=== PATIENT | female | born 2000 | race African-American/Black ===

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

== ENCOUNTER 2018-08-31 11:33 | Emergency (ER) | payer SELFPAY ==
[~2018-08-31] VITALS: Ht 157.5 cm; Wt 63.5 kg
[~2018-08-31 11:33] MED LIST changes: +IBUP-1060 PO; +METH-37 PO; +NAPR-695 PO; -NAPR375T3 PO; +TRAM-48 PO
[2018-08-31 11:55] VITALS: BP 126/78
[2018-08-31] MEDS ORDERED: OFLO5DRO EACHEYE (11:58)
--- NOTE | 2018-08-31 11:59 | PHYS DOC ---
Past Medical History Past Medical History: No Pertinent History Past Surgical History: Other Additional Past Surgical Histo: L wrist surgery as child Alcohol Use: None Drug Use: Marijuana Adult General Chief Complaint Chief Complaint: EYE PROBLEMS HPI HPI Patient is a 18 year old female who presents with erythema and drainage to right eye x 4 days. She is now starting to have symptoms in the left eye. She states it was matted shut this morning. She denies changes in visual acuity. Review of Systems Review of Systems Constitutional: Denies fever or chills [] Eyes: See history of present illness HENT: Denies nasal congestion or sore throat [] Respiratory: Denies cough or shortness of breath [] Cardiovascular: No additional information not addressed in HPI [] Neurologic: Denies headache, focal weakness or sensory changes [] Endocrine: Denies polyuria or polydipsia [] All other systems were reviewed and found to be within normal limits, except as documented in this note. Allergies Allergies Allergies Coded Allergies Type Severity Reaction Last Updated Verified No Known Drug Allergies 10/06/16 No Physical Exam Physical Exam Constitutional: Well developed, well nourished, no acute distress, non-toxic appearance. [] HENT: Normocephalic, atraumatic, bilateral external ears normal, oropharynx moist, no oral exudates, nose normal. [] Eyes: PERRLA, EOMI, conjunctiva erythematous with green matter noted Neck: Normal range of motion, no tenderness, supple, no stridor. [] Cardiovascular:Heart rate regular rhythm, no murmur [] Lungs & Thorax: Bilateral breath sounds clear to auscultation [] Neurologic: Alert and oriented X 3, normal motor function, normal sensory function, no focal deficits noted. [] Psychologic: Affect normal, judgement normal, mood normal. [] Current Patient Data Vital Signs Vital Signs Date Time Temp Pulse Resp B/P (MAP) Pulse Ox O2 Delivery O2 Flow Rate FiO2 08/31/18 11:55 98.8 69 16 126/78 (94) 96 Room Air 98.8 EKG EKG [] Radiology/Procedures Radiology/Procedures [] Course & Med Decision Making Course & Med Decision Making Pertinent Labs and Imaging studies reviewed. (See chart for details) [] Staff Physician Addendum: I was working in the ER during the course of this patient's visit. I was available for consultation as needed, but I was not directly involved in the care of this patient. Dragon Disclaimer Dragon Disclaimer This electronic medical record was generated, in whole or in part, using a voice recognition dictation system. Departure Departure Impression: Primary Impression: Bacterial conjunctivitis of both eyes Disposition: 01 HOME, SELF-CARE Condition: STABLE Referrals: UNKNOWN PCP NAME (PCP) Patient Instructions: Bacterial Conjunctivitis Additional Instructions: Use the antibiotic eyedrops as directed. Follow up with your primary care provider or mineral industry teacher in 3 days if not improving or return to the emergency department if worsening. Scripts Ofloxacin (OCUFLOX) 5 Ml Drops 1-2 DROP EACHEYE BID for conjunctivitis, #1 BOTTLE Prov: ROXY FARFAN APRN 08/31/18 ROXY FARFAN APRN Aug 31, 2018 11:59 SOHAN CHAVEZ MD Sep 01, 2018 12:34
== END 2018-08-31 12:15 | disposition home or self-care (01) ==
LOC: ER 11:33
DX: H10.89 Other conjunctivitis (principal)
CPT/HCPCS: 99283

== ENCOUNTER 2021-06-11 07:07 | Emergency (ER) | payer SELFPAY ==
[~2021-06-11] VITALS: Ht 160 cm; Wt 66.8 kg
[~2021-06-11 07:07] MED LIST changes: +OFLO5DRO EACHEYE
[2021-06-11] MEDS ORDERED: FLUC150T PO (07:47)
--- NOTE | 2021-06-11 07:50 | PHYS DOC ---
Past Medical History Past Medical History: No Pertinent History Past Surgical History: Other Additional Past Surgical Histo: L wrist surgery as child Smoking Status: Never Smoker Alcohol Use: Occasionally Drug Use: Marijuana General Adult EDM: Chief Complaint: VAGINAL PROBLEM HPI: HPI: Patient is a 21 year old female who presents with 1 day of vaginal itching. Does have a history of a yeast infection once in the past. Feels similar to that. Denies any discharge. Sexually active with women only. 2 partners in the past year. No personal or partner history of STI. States she was recently checked for GC and chlamydia and was negative. No recent antibiotics. No dysuria, urgency, frequency, flank pain, fever, or chills. No abdominal pain. Review of Systems: Review of Systems: Constitutional: Denies fever or chills. [] Eyes: Denies change in visual acuity. [] HENT: Denies nasal congestion or sore throat. [] Respiratory: Denies cough or shortness of breath. [] Cardiovascular: Denies chest pain or edema. [] GI: Denies abdominal pain, nausea, vomiting, bloody stools or diarrhea. [] : Denies dysuria. Reports vaginal itching. [] Musculoskeletal: Denies back pain or joint pain. [] Integument: Denies rash. [] Neurologic: Denies headache, focal weakness or sensory changes. [] Endocrine: Denies polyuria or polydipsia. [] Lymphatic: Denies swollen glands. [] Psychiatric: Denies depression or anxiety. [] Heart Score: C/O Chest Pain: N/A Risk Factors: Risk Factors: DM, Current or recent (<one month) smoker, HTN, HLP, family history of CAD, obesity. Risk Scores: Score 0 - 3: 2.5% MACE over next 6 weeks - Discharge Home Score 4 - 6: 20.3% MACE over next 6 weeks - Admit for Clinical Observation Score 7 - 10: 72.7% MACE over next 6 weeks - Early Invasive Strategies Allergies: Allergies: Allergies Coded Allergies Type Severity Reaction Last Updated Verified No Known Drug Allergies 06/11/21 No Physical Exam: PE: Constitutional: Well developed, well nourished, no acute distress, non-toxic appearance. [] HENT: Normocephalic, atraumatic, bilateral external ears normal, oropharynx moist, no oral exudates, nose normal. [] Eyes: PERRLA, EOMI, conjunctiva normal, no discharge. [] Neck: Normal range of motion, no tenderness, supple, no stridor. [] Cardiovascular:Heart rate regular rhythm, no murmur [] Lungs & Thorax: Bilateral breath sounds clear to auscultation [] Abdomen: Bowel sounds normal, soft, no tenderness, no masses, no pulsatile masses. [] : Normal appearance of exterior genitalia. No significant discharge. No vaginal or cervical lesions. Skin: Warm, dry, no erythema, no rash. [] Back: No tenderness, no CVA tenderness. [] Extremities: No tenderness, no cyanosis, no clubbing, ROM intact, no edema. [] Neurologic: Alert and oriented X 3, normal motor function, normal sensory function, no focal deficits noted. [] Psychologic: Affect normal, judgement normal, mood normal. [] Current Patient Data: Labs: Laboratory Tests Test 06/11/21 07:20 POC Urine HCG, Qualitative Hcg negative (Negative) Vital Signs: Vital Signs Date Time Temp Pulse Resp B/P (MAP) Pulse Ox O2 Delivery O2 Flow Rate FiO2 06/11/21 07:17 98.0 75 16 136/75 (95) 100 Room Air 98.0 EKG: EKG: [] Radiology/Procedures: Radiology/Procedures: [] Course & Med Decision Making: Course & Med Decision Making Pertinent Labs and Imaging studies reviewed. (See chart for details) Patient a 21-year-old female who presents with 1 day of vaginal itching. Feels similar to previous yeast infections. No recent antibiotics. Sexually active only with women. No vaginal discharge, or urinary symptoms. Pelvic exam normal. We will send GC/chlamydia swab, but will not treat empirically as she is low risk. Awaiting wet prep. [id number] Yvette Disclaimer: Yvette Disclaimer: This electronic medical record was generated, in whole or in part, using a voice recognition dictation system. Departure Departure Impression: Primary Impression: Vaginal pruritus Disposition: HOME / SELF CARE / HOMELESS Condition: STABLE Referrals: NO PCP (PCP) Additional Instructions: I have sent a prescription for a one-time pill to treat for a yeast infection to your pharmacy. Gonorrhea and chlamydia testing will take a few days to result. You will be called if your test returns positive. Please follow up with you usual doctor if symptoms persist. If you develop fever/chills, pain with urination, worsening back pain, or other new/concerning symptoms you can return to the emergency department at any time for re-evaluation. Scripts Fluconazole (DIFLUCAN) 150 Mg Tablet 1 TAB PO ONCE, #1 TAB 1 Refill Prov: RAINER VAUGHN MD 06/11/21 RAINER VAUGHN MD Jun 11, 2021 07:50
[2021-06-11] MEDS ORDERED: METR500T PO (08:45)
--- NOTE | 2021-06-11 08:46 | PHYS DOC ---
Past Medical History Past Medical History: No Pertinent History Past Surgical History: Other Additional Past Surgical Histo: L wrist surgery as child Smoking Status: Never Smoker Alcohol Use: Occasionally Drug Use: Marijuana General Adult EDM: Chief Complaint: VAGINAL PROBLEM HPI: HPI: see Dr. Leung' note Review of Systems: Review of Systems: see Dr. Leung' note Heart Score: C/O Chest Pain: No Risk Factors: Risk Factors: DM, Current or recent (<one month) smoker, HTN, HLP, family history of CAD, obesity. Risk Scores: Score 0 - 3: 2.5% MACE over next 6 weeks - Discharge Home Score 4 - 6: 20.3% MACE over next 6 weeks - Admit for Clinical Observation Score 7 - 10: 72.7% MACE over next 6 weeks - Early Invasive Strategies Allergies: Allergies: Allergies Coded Allergies Type Severity Reaction Last Updated Verified No Known Drug Allergies 06/11/21 No Physical Exam: PE: see Dr. Leung' note Current Patient Data: Labs: Laboratory Tests Test 06/11/21 07:20 POC Urine HCG, Qualitative Hcg negative (Negative) Microbiology 06/11/21 Wet Prep - Final, Complete Vital Signs: Vital Signs Date Time Temp Pulse Resp B/P (MAP) Pulse Ox O2 Delivery O2 Flow Rate FiO2 06/11/21 07:17 98.0 75 16 136/75 (95) 100 Room Air 98.0 EKG: EKG: [] Radiology/Procedures: Radiology/Procedures: [] Course & Med Decision Making: Course & Med Decision Making Pertinent Labs and Imaging studies reviewed. (See chart for details) I received signout from Dr. Vaughn regarding patient complains of vaginal itching for 1 day, unremarkable pelvic exam. Patient denies any vaginal discharge, bleeding or urinary symptoms. Wet prep consistent with bacterial vaginosis. Diflucan prescribed as prophylaxis by Dr. Vaughn. Patient formation provided contact number in case your chlamydia or gonorrhea should result positive. Lupe ent reports only female partners, no history of STIs. Will discharge home with strict ED return precautions were given for vaginal bleeding, fever, abdominal pain or dysuria. Encouraged urgent outpatient follow-up with PMD for outpatient follow-up, recommended health department for blood-borne STI testing. Life- threatening processes were considered but are low suspicion at this time, given history, physical exam and ED workup. Pt was educated on all prescription medications and adverse effects. All patient's questions were answered and pt was stable at time of discharge. Life/limb-threatening differential includes but is not limited to, ectopic , septic , sepsis/infection (endometritis, sti/pid, cystitis, pyelonephritis, Malik's gangrene or necrotizing fasciitis, abscess), ovarian torsion, ruptured hemorrhagic ovarian cyst, endometriosis, ureterolithiasis, th rombophlebitis, hemorrhage/DIC, organ prolapse, abdominal aortic aneurysm, mesenteric ischemia, neoplasm, bowel obstruction or surgical abdomen. I have spoken with the patient and/or caregivers. I explained the patient's condition, diagnoses and treatment plan based on the information available to me at this time. I have answered the patient and/or caregiver's questions and add ressed any concerns. The patient and/or caregivers have a good understanding of patient's diagnosis, condition and treatment plan as can be expected at this point. Vital signs have been stable. Patient's condition is stable and appropriate for discharge from the emergency department. Patient will pursue further outpatient evaluation with primary care physician or other designated or consulting physician as outlined in the discharge instructions. The patient and/or caregivers are agreeable to this plan of care and follow-up instructions have been explained in detail. The patient and/or caregivers have received these instructions in written form and have expressed an understanding of the discharge instructions. The patient and/or caregivers are aware that any significant change of condition or worsening of symptoms should prompt immediate return to this or the closest emergency department or call to 911. Yvette Disclaimer: Yvette Disclaimer: This electronic medical record was generated, in whole or in part, using a voice recognition dictation system. Departure Departure Impression: Primary Impression: Vaginal pruritus Additional Impression: Bacterial vaginosis Disposition: HOME / SELF CARE / HOMELESS Condition: STABLE Referrals: NO PCP (PCP) Follow-up with your primary care physician within 1 week OR FOLLOW UP WITH FAMILY MEDICINE: [address] [facility] [address] [place] [address] Patient Instructions: Bacterial Vaginosis Additional Instructions: I have sent a prescription for a one-time pill to treat for a yeast infection to your pharmacy. Gonorrhea and chlamydia testing will take a few days to result. You will be chevy led if your test returns positive. Please follow up with you usual doctor if symptoms persist. If you develop fever/chills, pain with urination, worsening back pain, or other new/concerning symptoms you can return to the emergency department at any time for re-evaluation. Scripts Metronidazole (FLAGYL) 500 Mg Tablet 1 TAB PO BID for 7 Days, #14 TAB Prov: SIMA DASILVA DO 06/11/21 Fluconazole (DIFLUCAN) 150 Mg Tablet 1 TAB PO ONCE, #1 TAB 1 Refill Prov: RAINER VAUGHN MD 06/11/21 SIMA DASILVA DO Jun 11, 2021 08:46
[2021-06-11 08:50] VITALS: BP 144/75
[2021-06-12 18:37] LABS: GC PROBE Negative (Negative)
== END 2021-06-11 08:50 | disposition home or self-care (01) ==
LOC: ER 07:07
DX: L29.8 Other pruritus (principal); N76.0 Acute vaginitis; B96.89 Other specified bacterial agents as the cause of diseases classified elsewhere
CPT/HCPCS: 81025; 87491; 87591; 99284; Q0111; 99283

== ENCOUNTER 2021-12-10 17:40 | Emergency (ER) | payer SELFPAY ==
[~2021-12-10] VITALS: Ht 157.5 cm; Wt 61.8 kg
[~2021-12-10 17:40] MED LIST changes: +FLUC150T PO; +METR500T PO
[2021-12-10 17:55] VITALS: BP 119/68
[2021-12-10] MEDS ORDERED: BENZONATATE 100 MG CAPSULE. PO ONE (18:30)
[2021-12-10] MEDS ORDERED: BENZOCAINE/MENTHOL LOZENGE. PO PRN (18:30)
[2021-12-10] MEDS ORDERED: BENZ-8 PO (18:44)
[2021-12-10] MEDS ORDERED: GUAI400T78 PO (18:44)
--- NOTE | 2021-12-10 18:45 | PHYS DOC ---
Past Medical History Past Medical History: No Pertinent History Past Surgical History: Other Additional Past Surgical Histo: L wrist surgery as child Smoking Status: Never Smoker Alcohol Use: Occasionally Drug Use: Marijuana General Adult EDM: Chief Complaint: FLU SYMPTOM HPI: HPI: Patient is a 21 year old female who presents with 4-day history of fatigue, body aches, nasal congestion, cough, ear pain, headache, nausea, eye itching. Patient reports associated night sweats and alternating feeling of hot and cold while working. When she wakes up, she states that her eyes are crusted shut. Patient was not vaccinated against COVID-19 nor has she received a flu shot this season. Review of Systems: Review of Systems: ROS negative or noncontributory except as mentioned in HPI. Heart Score: C/O Chest Pain: No Current Medications: Current Medications Medications (Trade) Dose Ordered Sig/Kaitlin Start Time Stop Time Status Last Admin Dose Admin Benzonatate (Tessalon Perle) 100 mg 1X ONCE 12/10/21 18:30 12/10/21 18:31 UNV Guaifenesin (Mucinex) 600 mg 1X ONCE 12/10/21 18:30 12/10/21 18:31 UNV Throat Lozenges (Cepacol Sore Throat Lozenge) 1 joaquin PRN Q2HRS PRN 12/10/21 18:30 UNV Allergies: Allergies: Allergies Coded Allergies Type Severity Reaction Last Updated Verified No Known Drug Allergies 06/11/21 No Physical Exam: PE: Constitutional: Well developed, well nourished, no acute distress, non-toxic appearance. HENT: Normocephalic, atraumatic, bilateral external ears normal, bilateral ear canals with significant amount of cerumen and without erythema or discharge, oropharynx moist, no oral exudates, bilateral nares with some mucus noted, no turbinate enlargement bilaterally. Eyes: PERRL, EOMI, conjunctiva normal, watery discharge bilaterally. Neck: Normal range of motion, supple, no stridor. Skin: Warm, dry, no erythema, no rash. Extremities: No cyanosis, no clubbing, ROM intact, no edema. Neurologic: Alert and oriented x4, normal motor function, normal sensory function, steady and symmetrical upright gait, no focal deficits noted. Current Patient Data: Labs: Laboratory Tests Test 12/10/21 18:12 Influenza Type A Antigen Negative (NEGATIVE) Influenza Type B Antigen Negative (NEGATIVE) SARS-CoV-2 Antigen (Rapid) Negative (NEGATIVE) Vital Signs: Vital Signs Date Time Temp Pulse Resp B/P (MAP) Pulse Ox O2 Delivery O2 Flow Rate FiO2 12/10/21 17:55 98.3 84 18 119/68 (85) 96 Room Air 98.3 Course & Med Decision Making: Course & Med Decision Making Pertinent Labs and Imaging studies reviewed. (See chart for details) Yvette Disclaimer: Yvette Disclaimer: This electronic medical record was generated, in whole or in part, using a voice recognition dictation system. Departure Departure Impression: Primary Impression: Acute viral syndrome Disposition: HOME / SELF CARE / HOMELESS Condition: STABLE Referrals: NO PCP (PCP) Patient Instructions: Viral Syndrome Additional Instructions: Follow the following supportive treatment measures: - Cool mist humidifier with plain water at bedside while you sleep - Mucinex (guaifenesin) per box instructions - Tessalon perles (benzonatate) for cough, especially at night before bed - Throat drops with benzocaine/menthol (brand name is Cepacol) - Alternate ibuprofen and acetaminophen every four hours for body aches/fever/headache If antibiotics were prescribed, take them as directed. You have been tested for or diagnosed with COVID-19 infection. It is an infection caused by a new type of coronavirus. COVID-19 will cause cold-like or mild flu symptoms in most. It can cause more severe symptoms like problems breathing in some. There is no treatment for COVID-19. The body will clear the infection over time. Self-care will help to ease discomfort. Steps to Take: - Rest as needed. - Choose healthy foods including fruits and vegetables. Drink water throughout the day. - Get plenty of sleep each night. - If you smoke, try to quit. It may ease breathing. - Avoid alcohol. - Keep Others Healthy - The virus can spread to others. Droplets are released every time you sneeze or cough. The droplets can get into the mouth, nose, or eyes of people near you and lead to infection. To lower the chances of spreading COVID-19 to others: Stay at home until your doctor has said it is safe to leave. If you tested positive this will mean staying isolated until both of the following are true: - At least 10 days have passed since the start of illness. - You are free of fever for at least 72 hours without the use of medicine. During this time: - Avoid public areas, events, or transportation. Do not return to work or school until your doctor has said it is safe to do so. - Call ahead if you need to go to a medical center. Let them know you may have COVID-19. It will help them guide you where to go. They may also ask you to wear a facemask when you come to the office. - If you call for emergency medical services, let them know you may have COVID- 19. While at home: - Try to avoid close contact with others. Stay about 6 feet away. - If possible, spend most of your time in a separate room from others. - Use a face mask if you will be in close contact with others such as sharing a room or vehicle. - Have someone wipe down common surfaces in the home. Use household airplane pilot helper every day on areas like doorknobs, counters, or sinks. - Cough or sneeze into a tissue. Throw the tissue away right after use. If a tissue is not available, cough or sneeze into your elbow. - Wash your hands often. Wash them after sneezing or coughing. Use soap and water and wash or at least 20 seconds. Alcohol based hand silver cleaner can be used if soap and water is not available. - Do not prepare food for others. Avoid sharing personal items like forks, spoons, or toothbrushes. - Avoid close contact with pets while you are sick. There is no evidence of the virus passing to pets. This is a safety step until more is known about this virus. - Isolation can be frustrating. Social interaction can help. Keep in touch with friends and family through phone and tech options. You can still interact with others in your home, just keep a safe distance of about 6 feet. Follow-up: - Your doctors office will check in with you to see if there are any changes in your health. - You may be asked to keep track of symptoms to share with them. They will also let you know when you are clear to be in public again. Contact your doctor if your recovery is not going as you expect. Get emergency care if you have problems such as: - Trouble breathing with oxygen saturation <90% - Nonstop chest pain or pressure - Changes in awareness, confusion, or problems waking - Lips or face have bluish color - Worsening of symptoms If you think you have an emergency, call for emergency medical services right away. As taken from [facility] Health Scripts Guaifenesin (GUAIFENESIN) 400 Mg Tablet 1 TAB PO TID for cough for 10 Days, #30 TAB 0 Refills Prov: PEREZ HINKLE 12/10/21 Benzonatate (BENZONATATE) 100 Mg Capsule 1-2 CAP PO HS, #20 CAP Prov: PEREZ HINKLE 12/10/21 PEREZ HINKLE Dec 10, 2021 18:45
[2021-12-10 19:25] LABS: INFLUENZA A PATIENT NEGATIVE (NEGATIVE); INFLUENZA B PATIENT NEGATIVE (NEGATIVE)
== END 2021-12-10 19:40 | disposition home or self-care (01) ==
LOC: ER 17:40
DX: B34.9 Viral infection, unspecified (principal); Z20.822 Contact with and (suspected) exposure to COVID-19
CPT/HCPCS: 87428; 99284; C9803; U0003